=== PATIENT | male | born 1980 | race African-American/Black ===

== ENCOUNTER 2021-10-23 09:16 | Emergency (ER) | payer MEDICAID, SELFPAY ==
[2021-10-23 09:18] VITALS: BP 148/77; PULSE 117; RESP 16; O2SAT 97; BMI 29.1
--- NOTE | 2021-10-23 09:51 | ED_ITS ---
HPI - Nausea/Vomiting/Diarrhea General Chief complaint: Nausea/Vomiting/Diarrhea Stated complaint: vomiting Time Seen by Provider: 10/23/21 09:47 Source: patient Mode of arrival: ambulatory Limitations: no limitations History of Present Illness HPI Narrative: 41-year-old male with a past medical history of anxiety, depression, PTSD presenting to the ED with complaints of 2 days of nausea vomiting with diaphoresis after he ate some chicken at work yesterday at 15:00. Reports that his girlfriend was diagnosed with the flu approximately 1 week ago. He reports that he is not vaccinated to the floor to [facility]. He denies any fevers, chills, dizziness, headaches, neck pain/stiffness, loss of taste or smell, nasal congestion/rhinorrhea, sore throat, cough, black or bloody emesis, chest pain or shortness of breath, dyspnea on exertion, orthopnea, palpitations, paresthesias, abdominal pain, back pain, dysuria, hematuria, abnormal penile discharge, recent travel, any other sick contacts, recent antibiotic usage, black or bloody stools or any other symptoms complaints or concerns at this time. MD elicited complaint: nausea and vomiting Onset (ago): day(s) (2) Description of vomiting: food contents, watery and bilious Associated nausea: Yes Associated abdominal pain: No Location of pain: none Pain consistency: constant Severity: moderate Exacerbating factors: eating Context: possible food poisoning Associated symptoms: diaphoresis Related Data Previous Rx's Medication Instructions Recorded ondansetron HCl 4 mg tablet 4 mg PO Q6H #14 tab 10/23/21 Allergies Allergy/AdvReac Type Severity Reaction Status Date / Time No Known Allergies Allergy Verified 10/23/21 09:21 [No Known Allergies*] Review of Systems Review of Systems: Constitutional : No Fever, No Chills, No Night Sweats, No Fatigue, No Malaise Cardiovascular : No Chest Pain, No SOB Respiratory : No Cough, No Sputum, No Wheezing, No Dyspnea Gastrointestinal : + Nausea, + Vomiting, No Diarrhea, No abdominal Pain, No Hematochezia, No Melena Genitourinary : No irregular bleeding, No Dysuria, No Urinary Frequency, No Hematuria,No Urinary Incontinence, No Urgency, No Flank Pain Musculoskeletal : No joint pain, No Myalgias, No Joint Swelling Skin : No Skin Lesions, No rash Neuro : No Weakness, No Numbness, No Paresthesias, No Loss of Consciousness, No Dizziness, No Headache Heme/Lymph: No Lymphadenopathy Endocrine : No Temperature Intolerance Yes all other systems are reviewed and are negative Gastrointestinal: Gastrointestinal: Reports nausea PMFSH Past Medical History Attestation statement: The following information was validated with the patient. Medical History Anxiety Depression PTSD (post-traumatic stress disorder) Social History Social History Advance Directives: No Advance Directives Information Provided: No Physical Exam Vital Signs: Vital Signs: Last Vital Signs Pulse 117 H 10/23/21 09:18 Resp 16 10/23/21 09:18 BP 148/77 H 10/23/21 09:18 Pulse Ox 97 10/23/21 09:18 BMI result Body Mass Index 29.1 vital signs have been reviewed as normal and appeared to be correct. Blood pressure 148/77 Heart rate 117. Respiration rate normal. Temperature normal. Oxygen saturation normal. Appearance: Alert. Oriented X3. No acute distress. Head: Normal external exam. Normocephalic. Eyes: PERRLA. EOMI. Conjunctiva and sclera normal. Eyelids normal. ENT: Pharynx normal. Uvula midline. Moist mucous membranes. No trismus noted. No drooling noted. No muffled voice noted. Neck: Normal inspection. Neck supple. FROM. No adenopathy. No meningeal signs. CVS: Normal heart rate and rhythm. Heart sound normal. No murmurs noted. Pulses normal throughout. Respiratory: No respiratory distress. Painless inspiration. Breath sounds normal. No wheezes/rales/rhonchi noted. Chest nontender. No accessory muscle usage noted or decreased air movement noted. Abdomen: Soft and nontender. Nondistended. No guarding. No rigidity. Bowel sounds normal in all 4 quadrants. No distention noted. No organomegaly noted. No visible injury noted. No rebound tenderness. Negative Rovsing sign. Negative obturator's sign. Negative psoas sign. Negative Leonard sign. Back: No CVA tenderness. Full range of motion noted. Skin: Skin warm and dry. Normal skin color. Normal skin turgor. No rashes/lesions/lacerations noted. Extremities: Extremities exhibit normal range of motion. Extremities nontender. Neuro: Oriented X 3. No motor deficit. No sensory deficit. Reflexes normal. Normal steady gait. CN's II-XII intact bilaterally? Course Course Course Narrative: 9:45am - 41-year-old male with a past medical history of anxiety, depression, PTSD presenting to the ED with complaints of 2 days of nausea vomiting with diaphoresis after he ate some chicken at work yesterday at 15:00. Reports that his girlfriend was diagnosed with the flu approximately 1 week ago. Plan: Labs, UA, COVID, flu swab. Provide a L of IV fluids with 4 mg of Zofran and re-evaluate Reevaluation(s) Reevaluation #1: - labs reviewed patient with an elevated white blood cell count 53622. Chloride 109. AST 60. Ethanol level 74. Otherwise all other labs are within normal limits. Patient negative for COVID and flu. - therefore at this time patient is tolerating p.o. fluids/solids will DC home with Zofran for viral syndrome and instructions to return if any new or worsening symptoms to follow up with primary care provider. Patient understands agrees with this plan. Time: 10:59 MDM - Nausea/Vomiting/Diarrhea Medical Records Attestation: I reviewed the patient's medical records. Lab Data Attestation: I reviewed the patient's lab results. Result diagrams: 10/23/21 10:15 10/23/21 10:15 Labs: Lab Results 10/23/21 10/23/21 10/23/21 Range/Units 10:15 10:15 10:15 WBC 11.7 H (4.8-10.8) X10*3/uL RBC 4.97 (4.60-5.80) X10*6/uL Hgb 15.0 (14.0-18.0) g/dl Hct 44.0 (42.0-52.0) % MCV 88.5 (80.0-98.0) fL MCH 30.2 (27.0-33.0) pg MCHC 34.1 (31.0-36.0) g/dl RDW 13.7 (11.0-16.0) % Plt Count 290 (160-400) X10*3/uL MPV 9.5 (9.4-12.4) fL Immature Gran % (Auto) 0.5 H (0.0-0.4) % Neut % (Auto) 62.4 (45-73) % Lymph % (Auto) 28.9 (20-40) % Guthrie % (Auto) 6.9 (2-11) % Eos % (Auto) 0.9 (0-4) % Baso % (Auto) 0.4 (0-2) % Lymph # (Auto) 3.4 (1.2-4.9) X10*3/uL [place]rie # (Auto) 0.8 (0.1-1.2) X10*3/uL Eos # (Auto) 0.1 (0.0-0.4) X10*3/uL Baso # (Auto) 0.1 (0.0-0.2) X10*3/uL Abs Immat Gran (auto) 0.06 H (0.00-0.03) X10*3/uL Absolute Neuts (auto) 7.3 (2.0-8.3) x10*3/uL Absolute Nucleated RBC 0.000 (0.0-0.012) X10*3/uL Nucleated RBC % (auto) 0.0 (0.0-0.2) /100WBC Sodium (135-145) mmol/L Potassium (3.3-5.1) mmol/L Chloride (96-108) mmol/L Carbon Dioxide (22-29) mmol/L Anion Gap (12-20) BUN (9-16) mg/dL Creatinine (0.5-1.4) mg/dL Estim Creat Clear Calc Estimated GFR Random Glucose (60-115) mg/dL Calcium (8.4-10.2) mg/dL Magnesium (1.6-2.6) mg/dL Total Bilirubin (0.0-1.0) mg/dL AST (5-37) U/L ALT (0-40) U/L Alkaline Phosphatase (39-117) U/L Total Protein (6.5-8.0) g/dL Albumin (3.5-5.0) g/dL Lipase (8-78) U/L Ethyl Alcohol mg/dL COVID-19 (ROMI) Negative (Negative) COVID-19 Clin Com See Note Influenza Type A (BIANKA) Negative (Negative) Influenza Type B (BIANKA) Negative (Negative) Influenza A & B Note See Note 10/23/21 10/23/21 Range/Units 10:15 10:15 WBC (4.8-10.8) X10*3/uL RBC (4.60-5.80) X10*6/uL Hgb (14.0-18.0) g/dl Hct (42.0-52.0) % MCV (80.0-98.0) fL MCH (27.0-33.0) pg MCHC (31.0-36.0) g/dl RDW (11.0-16.0) % Plt Count (160-400) X10*3/uL MPV (9.4-12.4) fL Immature Gran % (Auto) (0.0-0.4) % Neut % (Auto) (45-73) % Lymph % (Auto) (20-40) % Guthrie % (Auto) (2-11) % Eos % (Auto) (0-4) % Baso % (Auto) (0-2) % Lymph # (Auto) (1.2-4.9) X10*3/uL [place]rie # (Auto) (0.1-1.2) X10*3/uL Eos # (Auto) (0.0-0.4) X10*3/uL Baso # (Auto) (0.0-0.2) X10*3/uL Abs Immat Gran (auto) (0.00-0.03) X10*3/uL Absolute Neuts (auto) (2.0-8.3) x10*3/uL Absolute Nucleated RBC (0.0-0.012) X10*3/uL Nucleated RBC % (auto) (0.0-0.2) /100WBC Sodium 142 (135-145) mmol/L Potassium 4.2 (3.3-5.1) mmol/L Chloride 109 H (96-108) mmol/L Carbon Dioxide 22 (22-29) mmol/L Anion Gap 15 (12-20) BUN 13 (9-16) mg/dL Creatinine 0.84 (0.5-1.4) mg/dL Estim Creat Clear Calc 142.8 Estimated GFR > 60 Random Glucose 98 (60-115) mg/dL Calcium 9.6 (8.4-10.2) mg/dL Magnesium 2.1 (1.6-2.6) mg/dL Total Bilirubin 0.6 (0.0-1.0) mg/dL AST 60 H (5-37) U/L ALT 39 (0-40) U/L Alkaline Phosphatase 50 (39-117) U/L Total Protein 7.1 (6.5-8.0) g/dL Albumin 4.6 (3.5-5.0) g/dL Lipase 29 (8-78) U/L Ethyl Alcohol 74 mg/dL COVID-19 (ROMI) (Negative) COVID-19 Clin Com Influenza Type A (BIANKA) (Negative) Influenza Type B (BIANKA) (Negative) Influenza A & B Note Discharge Plan Discharge Clinical Impression: Nausea & vomiting, Gastroenteritis, Acute viral syndrome Patient Disposition: Home, Self-Care Instructions: Gastroenteritis (ED), Acute Nausea and Vomiting (ED), Viral Syndrome (ED) Prescriptions: New ondansetron HCl 4 mg tablet 4 mg PO Q6H Qty: 14 0RF Referrals: Miguel Angel Gill MD [Primary Care Provider] - 2 days Stand Alone Forms: Work/School Release Print Language: Taiwanese
[2021-10-23 10:18] LABS: MANUAL DIFF FLAG NO
[2021-10-23] MEDS: 0.9 % Sodium Chloride 1,000 ML 999 ML IVCONT (10:22)
[2021-10-23] MEDS: ondansetron HCL 4 MG/2 ML VIAL IVPUSH (10:22)
[2021-10-23 10:26] LABS: Basophils Absolute Auto 0.1 X10*3/uL (0.0-0.2); Basophils Percent Auto 0.4 % (0-2); Eosinophils Absolute Auto 0.1 X10*3/uL (0.0-0.4); Eosinophils Percent Auto 0.9 % (0-4); Imm Gran Abs Auto 0.06 X10*3/uL (0.00-0.03); Imm Gran Pct Auto 0.5 % (0.0-0.4); Lymphocytes Absolute Auto 3.4 X10*3/uL (1.2-4.9); Lymphocytes Percent Auto 28.9 % (20-40); Mean Corpuscular HGB Conc 34.1 g/dl (31.0-36.0); Mean Corpuscular Hemoglobin 30.2 pg (27.0-33.0); Mean Corpuscular Volume 88.5 fL (80.0-98.0); Mean Platelet Volume 9.5 fL (9.4-12.4); Monocytes Absolute Auto 0.8 X10*3/uL (0.1-1.2); Monocytes Percent Auto 6.9 % (2-11); Neutrophils Absolute Auto 7.3 x10*3/uL (2.0-8.3); Neutrophils Percent Auto 62.4 % (45-73); Platelet Count 290 X10*3/uL (160-400); Red Blood Count 4.97 X10*6/uL (4.60-5.80); Red Cell Distribution Width 13.7 % (11.0-16.0); White Blood Count 11.7 X10*3/uL (4.8-10.8)
[2021-10-23 10:35] LABS: COVID-19 Test Negative (Negative)
[2021-10-23 10:37] LABS: IDNOW Serial# 16C4AD1C; Influenza A Negative (Negative); Influenza B2 Negative (Negative)
[2021-10-23 10:49] LABS: Ethanol 74 mg/dL
[2021-10-23 10:53] LABS: Alanine Aminotransferase 39 U/L (0-40); Albumin Level 4.6 g/dL (3.5-5.0); Alkaline Phosphatase 50 U/L (39-117); Anion Gap 15 (12-20); Aspartate Amino Transferase 60 U/L (5-37); Bilirubin Total 0.6 mg/dL (0.0-1.0); Blood Urea Nitrogen 13 mg/dL (9-16); Calcium 9.6 mg/dL (8.4-10.2); Carbon Dioxide 22 mmol/L (22-29); Chloride 109 mmol/L (96-108); Creatinine Clr Calc Pharmacy 142.8; Estimated Glomerular Filt Rate > 60; Glucose Random 98 mg/dL (60-115); Lipase 29 U/L (8-78); Magnesium 2.1 mg/dL (1.6-2.6); Potassium 4.2 mmol/L (3.3-5.1); Sodium 142 mmol/L (135-145); Total Protein 7.1 g/dL (6.5-8.0)
[2021-10-23 11:23] VITALS: BP 124/72; PULSE 76
== END 2021-10-23 11:26 | disposition home or self-care (01) ==
PROVIDERS: Physician Assistant Medical; Emergency Provider Emergency Medicine; PCP Pediatrics
DX: K52.9 Noninfective gastroenteritis and colitis, unspecified (principal); B34.9 Viral infection, unspecified; Z20.822 Contact with and (suspected) exposure to COVID-19
CPT/HCPCS: 36415; 80053; 82077; 83690; 83735; 85025; 87502; 87635; 96361; 96374; 99283; 99284; J2405

== ENCOUNTER 2024-05-03 19:58 | Emergency (ER) | payer MEDICAID, SELFPAY ==
[2024-05-03 20:14] VITALS: BP 121/78; PULSE 95; RESP 18; TEMP 36.6; O2SAT 98; BMI 27.3
--- NOTE | 2024-05-03 20:14 | ED_ITS ---
HPI - Abdominal Pain General Chief Complaint: Abdominal Pain Stated Complaint: abd pain Time Seen by Provider: 05/03/24 23:16 History of Present Illness ED Provider: Margy DUBON narrative: The patient says that he first noticed a lump in his right lower abdomen at the beginning of the summer, over 4 months ago. He says that he feels that it is painful. He says the pain is worse with certain movements and activities. However the pain is not associated with any nausea or vomiting or loss of appetite. He has had normal bowel function. He denies any injury. 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 Related Data Previous Rx's ?Medication ?Instructions ?Recorded ondansetron HCl 4 mg tablet 4 mg PO Q6H nausea and vomiting 10/23/21 #14 tabs Allergies Allergy/AdvReac Type Severity Reaction Status Date / Time No Known Allergies Allergy Verified 05/03/24 20:16 [No Known Allergies*] Review of Systems Review of Systems Yes all other systems are reviewed and are negative [facility] Past Medical History Medical History Anxiety Depression PTSD (post-traumatic stress disorder) Social History Social History Alcohol intake: current Alcohol intake frequency: a few times a week Smoked in Last 30 Days: Yes Use of substances other than those prescribed or required for medical reasons: Yes Substance Use Type: Crack/Cocaine Substance Use Frequency: Weekly Advance Directives: No Advance Directives Information Provided: No Do you have a plan to hurt others: No Plan Physical Exam ED Vital Signs: Vital Signs - 24 hr 05/03/24 20:14 05/03/24 23:00 05/03/24 23:55 Temperature 97.9 F 97.8 F 98.0 F Pulse Rate 95 78 87 Respiratory Rate 18 16 15 Blood Pressure 121/78 100/60 105/65 Pulse Oximetry 98 98 97 Oxygen Delivery Method Room Air Room Air Room Air 05/03/24 23:56 Temperature 98.0 F Pulse Rate 87 Respiratory Rate 15 Blood Pressure 105/65 Pulse Oximetry 97 Oxygen Delivery Method Room Air BMI result Body Mass Index 27.3 Const Other: The patient is a 44-year-old male who was awake and alert and did not appear in acute distress. He looks as though he is ordinarily healthy and athletic. HENMT Other: Face is symmetrical. Mucous membranes moist. Eyes General: appearance normal, both eyes and all related structures Neck Neck: Yes full ROM Resp Effort & Inspection: normal respiratory effort Auscultation: clear to auscultation bilaterally Cardio Rate: regular rate Rhythm: regular rhythm Heart sounds: S1 normal heart sound present and S2 normal heart sound present GI Other: The abdomen is flat and soft. In the right lower quadrant I was able to palpate what seems to be a small mass on the outside of the abdominal muscles. This is felt as if it had the consistency of a lipoma. The patient seemed to have some slight tenderness with palpation of this mass but otherwise the abdomen seems benign. Skin Other: Skin is normal. Neuro Other: The patient is awake and alert with a normal mental status. Cranial nerves are grossly intact. He moves his extremities normally. Extrem Other: Extremities are normal Course Course Course Narrative: This is an RME done by MAGALI Hylton: Additional HPI, ROS, PE not included below will be deferred to primary provider. 44-year-old male presents with right lower quadrant pain since yesterday, pain 6-7/10, reports a tightness/sharp pain, reports it was aggravated yesterday by drinking. No heavy lifting or trauma. Denies fevers, chills, nausea, vomiting, headache, vision changes, dizziness. No abdominal surgeries Mild discomfort to right lower quadrant Medical Decision Making Medical Decision Making MDM Narrative: The patient is a 44-year-old male with no significant past surgical history and who is generally in fairly good health who says that he has noticed painful lump in his abdominal wall over the last several months. On exam I am able to palpate a small mass which seems to be sitting on the wall of the abdominal muscles in the deep subcutaneous tissues. I impression is that the lump feels like a lipoma rather than a hernia. The patient has no gastrointestinal symptoms such as nausea or anorexia or change in bowel habits. I do not think there is an indication for CT imaging. I have tried a bedside ultrasound but did not really see anything that I felt was clearly diagnostic. On the whole I think this is probably something like a lipoma rather than anything more serious. I think the patient may be discharged to follow up with the general surgery clinic. Lab Data 05/03/24 20:45 05/03/24 20:45 Labs: Lab Results 05/03/24 05/03/24 Range/Units 20:45 22:13 WBC 16.0 H (4.8-10.8) X10*3/uL RBC 4.77 (4.60-5.80) X10*6/uL Hgb 14.9 (14.0-18.0) g/dl Hct 42.0 (42.0-52.0) % MCV 88.1 (80.0-98.0) fL MCH 31.2 (27.0-33.0) pg MCHC 35.5 (31.0-36.0) g/dl RDW 14.7 (11.0-16.0) % Plt Count 311 (160-400) X10*3/uL MPV 8.7 L (9.4-12.4) fL Immature Gran % (Auto) 0.6 H (0.0-0.4) % Neut % (Auto) 64.6 (45-73) % Lymph % (Auto) 25.6 (20-40) % [place] % (Auto) 7.9 (2-11) % Eos % (Auto) 0.9 (0-4) % Baso % (Auto) 0.4 (0-2) % Lymph # (Auto) 4.1 (1.2-4.9) X10*3/uL [place] # (Auto) 1.3 H (0.1-1.2) X10*3/uL Eos # (Auto) 0.1 (0.0-0.4) X10*3/uL Baso # (Auto) 0.1 (0.0-0.2) X10*3/uL Abs Immat Gran (auto) 0.10 H (0.00-0.03) X10*3/uL Absolute Neuts (auto) 10.3 H (2.0-8.3) x10*3/uL Absolute Nucleated RBC 0.000 (0.0-0.012) X10*3/uL Nucleated RBC % (auto) 0.0 (0.0-0.2) /100WBC Sodium 138 (135-145) mmol/L Potassium 3.3 (3.3-5.1) mmol/L Chloride 104 (96-108) mmol/L Carbon Dioxide 21 L (22-29) mmol/L Anion Gap 16 (12-20) BUN 13 (9-16) mg/dL Creatinine 0.80 (0.5-1.4) mg/dL Estim Creat Clear Calc 120.2 Estimated GFR > 60 Random Glucose 117 H (60-115) mg/dL Calcium 9.1 (8.4-10.2) mg/dL Magnesium 2.3 (1.6-2.6) mg/dL Total Bilirubin 0.6 (0.0-1.0) mg/dL AST 45 H (5-37) U/L ALT 32 (0-40) U/L Alkaline Phosphatase 64 (39-117) U/L C-Reactive Protein 0.30 (< or = 0.50) mg/dL Total Protein 6.2 L (6.5-8.0) g/dL Albumin 4.0 (3.5-5.0) g/dL Lipase 29 (8-78) U/L Urine Color Yellow Urine Appearance Clear Urine pH 5.5 (5.0-9.0) Ur Specific Emerson <= 1.005 (1.005-1.025) Urine Protein Negative (Neg-Trace) mg/dL Urine Glucose (UA) Negative (Negative) mg/dL Urine Ketones Negative (Negative) mg/dL Urine Blood Negative (Negative) Urine Nitrite Negative (Negative) Ur Leukocyte Esterase Negative (Negative) Discharge Plan Discharge Clinical Impression: Abdominal wall lump Patient Disposition: Home, Self-Care Additional Instructions: You seem to have some kind of a lump on the outside of the abdominal wall in your right lower abdomen. My suspicion is that this might be a small benign fatty tumor called a lipoma. Alternatively this could be a very small abdominal wall hernia but I think that is probably not very likely. I think it would be good for you to be seen at the general surgery clinic. You have the contact information for [facility] [place]. Please call the office on Monday morning to set up an appointment to follow up on this issue. Return to the emergency room if you feel significantly worse. Prescriptions: No Action ondansetron HCl 4 mg tablet 4 mg PO Q6H Qty: 14 0RF [place]errals: [facility] [place] [facility]Provider Group] (Abdominal wall mass/lump, ? hernia vs lipoma) [facility] [Provider Group] (abdominal wall lump) Stand Alone Forms: Work/School Release Interventions: ED Discharge Assessment Last Done: 05/03/24 23:56 Discharge Date/Time: 05/03/24 23:56 Print Language: Nigerien
[2024-05-03 20:53] LABS: MANUAL DIFF FLAG NO
[2024-05-03 20:55] LABS: Basophils Absolute Auto 0.1 X10*3/uL (0.0-0.2); Basophils Percent Auto 0.4 % (0-2); Eosinophils Absolute Auto 0.1 X10*3/uL (0.0-0.4); Eosinophils Percent Auto 0.9 % (0-4); Hemoglobin 14.9 g/dl (14.0-18.0); Imm Gran Pct Auto 0.6 % (0.0-0.4); Lymphocytes Absolute Auto 4.1 X10*3/uL (1.2-4.9); Lymphocytes Percent Auto 25.6 % (20-40); Mean Corpuscular HGB Conc 35.5 g/dl (31.0-36.0); Mean Corpuscular Hemoglobin 31.2 pg (27.0-33.0); Mean Corpuscular Volume 88.1 fL (80.0-98.0); Mean Platelet Volume 8.7 fL (9.4-12.4); Monocytes Absolute Auto 1.3 X10*3/uL (0.1-1.2); Monocytes Percent Auto 7.9 % (2-11); Neutrophils Absolute Auto 10.3 x10*3/uL (2.0-8.3); Neutrophils Percent Auto 64.6 % (45-73); Platelet Count 311 X10*3/uL (160-400); Red Blood Count 4.77 X10*6/uL (4.60-5.80); Red Cell Distribution Width 14.7 % (11.0-16.0)
[2024-05-03 21:08] LABS: Alanine Aminotransferase 32 U/L (0-40); Alkaline Phosphatase 64 U/L (39-117); Anion Gap 16 (12-20); Aspartate Amino Transferase 45 U/L (5-37); Bilirubin Total 0.6 mg/dL (0.0-1.0); Blood Urea Nitrogen 13 mg/dL (9-16); Calcium 9.1 mg/dL (8.4-10.2); Carbon Dioxide 21 mmol/L (22-29); Chloride 104 mmol/L (96-108); Creatinine Clr Calc Pharmacy 120.2; Estimated Glomerular Filt Rate > 60; Glucose Random 117 mg/dL (60-115); Lipase 29 U/L (8-78); Magnesium 2.3 mg/dL (1.6-2.6); Potassium 3.3 mmol/L (3.3-5.1); Sodium 138 mmol/L (135-145); Total Protein 6.2 g/dL (6.5-8.0)
[2024-05-03 22:20] LABS: Appearance Urine Clear; Color Urine Yellow; Glucose Urine UA Negative (Negative); Leukocyte Esterase Urine Negative (Negative); Nitrite Urine Negative (Negative); PH 5.5 (5.0-9.0); Specific Gravity - Urine <= 1.005 (1.005-1.025); Urine Blood Negative (Negative); Urine Ketones Negative (Negative); Urine Protein Negative (Neg-Trace)
[2024-05-03 23:00] VITALS: BP 100/60; PULSE 78; RESP 16; TEMP 36.6; O2SAT 98
[2024-05-03 23:55] VITALS: BP 105/65; PULSE 87; RESP 15; TEMP 36.7; O2SAT 97
[2024-05-03 23:56] VITALS: BP 105/65; PULSE 87; RESP 15; TEMP 36.7; O2SAT 97
== END 2024-05-03 23:56 | disposition home or self-care (01) ==
PROVIDERS: Physician Assistant; Emergency Provider Emergency Medicine
DX: R19.03 Right lower quadrant abdominal swelling, mass and lump (principal)
CPT/HCPCS: 36415; 80053; 81003; 83690; 83735; 85025; 86140; 99283; 99284

== ENCOUNTER 2024-05-08 08:42 | Outpatient (AMB) | payer MEDICAID, SELFPAY ==
[2024-05-08 08:45] VITALS: BP 129/73; PULSE 62; BMI 27.0
--- NOTE | 2024-05-08 08:45 | A.OFFVIS_ITS ---
Vital Signs 05/08/24 08:45 Height 5 ft 9 in Weight 183 lb BMI 27.0 BP 129/73 Blood Pressure Location Rt brachial Position Sitting Pulse 62 Intake Visit Reasons: Abdominal Wall Mass Intake Note: This patient presents for [facility] emergency department follow-up for abdominal wall mass. Pt c/o; Onset 3-4 months, reports about one week ago his pain worsen and that is what brought him to the ER at that time, reports he noticed when he had stopped working his bulge decreased in size and with certain movements that is where the pain is more noticeable. 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 His complaint is of abdominal wall mass in the right side. He has had this several months time. It is increasing in size, and becoming more symptomatic. He would like to have it removed. He has no such lesions elsewhere. Chart was reviewed and patient evaluated [facility] Medical History PTSD (post-traumatic stress disorder) Anxiety Depression Surgical History No pertinent past surgical history Family History Other Family history unknown Social History Alcohol intake: current Alcohol intake frequency: a few times a week Substance Use Type: Crack/Cocaine Physical Exam Vital Signs: Last Vital Signs Pulse 62 05/08/24 08:45 BP 129/73 05/08/24 08:45 BMI result Body Mass Index 27.0 Chest Other: Chest breath sounds bilaterally, HS 1 in 2 GI Other: Patient was examined both supine and standing with Valsalva. Scaphoid abdomen. Bilateral groin exam negative. Abdomen is soft and benign. Patient has a deeply situated right mid abdomen mass measuring roughly 4 x 4 cm consistent with a lipoma. Assessment & Plan Assessment & Plan (1) Abdominal wall mass of right lower quadrant: Code(s): R19.03 - Right lower quadrant abdominal swelling, mass and lump Category: Surgical Plan Patient was like to have this removed. Because of the size and depth, this would be better performed in an ambulatory setting. Risks, benefits, alternatives of excision of abdominal mass reviewed with the patient and included but not limited to bleeding, infection, recurrence, numbness, pain, scarring the patient wished to proceed. All questions answered. Arrangements will be made for this. Coding Level of Care Code New Pt Level 5 (83973) Diagnoses Abdominal wall mass of right lower quadrant R19.03
== END 2024-05-08 08:57 | disposition home or self-care (01) ==
PROVIDERS: Visit Provider Surgery
DX: R19.03 Right lower quadrant abdominal swelling, mass and lump (principal)
CPT/HCPCS: 99204

== ENCOUNTER → 2024-05-08 08:42 | Outpatient (BNVA) | payer MEDICAID, SELFPAY | PROVIDERS: Visit Provider Surgery | DX: R19.03 Right lower quadrant abdominal swelling, mass and lump (principal) | CPT/HCPCS: 99202 ==